=== PATIENT | male | born 1940 | race African-American/Black ===

== ENCOUNTER 2016-06-21 19:26 | Inpatient (IN) | payer MEDICARE, MEDICAID ==
[~2016-06-21] VITALS: Ht 182.9 cm; Wt 57.2 kg
[~2016-06-21 19:26] MED LIST: ADVAIR 100-501 EACH INH; AMLODIPINE BES2.5 MG ORAL; ARICEPT5 MG ORAL; ASCORBIC ACID500 MG ORAL; ASPIR 8181 MG ORAL; ASPIRIN81 M3 PO; ATIVAN1 MG ORAL; BENADRYL50 MG ORAL; BISACODYL10 M1 RC; BISCOLAX10 MG RC; COLACE100 MG ORAL; COMPAZINE25 MG RECTAL; CRANBERRY400 MG PO; DIAZEPAM2 MG ORAL; FAMOTIDINE20 MG ORAL; IPRATROPIU0.2 MG/1 M HHN; LACTULOSE10 GM/153 PO; LEVAQUIN500 MG ORAL; LORAZEPAM1 MG ORAL; LOVENOX10 MG SUBQ; MEDROL DOSEPAK4 MG ORAL; MIRTAZAPINE15 M1 ORAL; MULTIVITAMINS1 EAC8 ORAL; NITROGLYCERIN0.4 MG SL; NORCO 5-325 TA1 EACH ORAL; NORVASC2.5 MG ORAL; QUETIAPINE FUMA25 MG ORAL; RISPERDAL0.25 MG ORAL; RISPERDAL1 MG PO; SEROQUEL25 MG ORAL; TYLENOL650 MG/20. ORAL; VALIUM2 MG ORAL; ZINC SULFATE220 M1 ORAL
[2016-06-21] MEDS ORDERED: Solu-MEDROL 125mg Inj IVP ONE (19:45)
[2016-06-21] MEDS ORDERED: Albuterol ud Inhalation HHN ONE (19:45)
[2016-06-21] MEDS ORDERED: Morphine Sulfate 4mg/ml Inj IVP ONE (19:45)
[2016-06-21] MEDS ORDERED: Ipratropium 0.02% Inh Soln 2.5ml UD HHN ONE (19:45)
[2016-06-21 20:00] VITALS: BP 103/68
[2016-06-21 20:23] LABS: BASOPHILS % (AUTO) 1.7 % (0.0-2.0); EOSINOPHILS % (AUTO) 2.8 % (0.0-3.0); MEAN CORPUSCULAR HEMOGLOBIN 26.3 PG (27.0-31.0); MEAN CORPUSCULAR HGB CONC 30.1 G/DL (32.0-36.0); MEAN CORPUSCULAR VOLUME 87 FL (80-99); MEAN PLATELET VOLUME 5.3 FL (6.5-10.1); MONOCYTES % (AUTO) 9.8 % (1.0-10.0); NEUTROPHILS % (AUTO) 55.6 % (45.0-75.0); PLATELET COUNT 287 K/UL (150-450); RED BLOOD COUNT 3.75 M/UL (4.70-6.10); WHITE BLOOD COUNT 5.7 K/UL (4.8-10.8)
[2016-06-21 20:29] LABS: APPEARANCE,URINE CLOUDY; KETONES,URINE NEGATIVE (NEGATIVE); LEUKOCYTE ESTERASE ,URINE 3+ (NEGATIVE); NITRITE,URINE NEGATIVE (NEGATIVE); PH,URINE 9 (4.5-8.0); PROTEIN,URINE 2+ (NEGATIVE); UROBILINOGEN,URINE NORMAL MG/DL (0.0-1.0)
[2016-06-21 20:38] LABS: TROPONIN I < 0.30 ng/mL (<=0.30)
[2016-06-21 20:39] LABS: ALANINE AMINOTRANSFERASE 30 U/L (3-41); ALBUMIN/GLOBULIN RATIO 1.1 (1.0-2.7); ANION GAP 12 (5-15); ASPARTATE AMINO TRANSFERASE 18 U/L (5-40); CALCIUM 8.1 mg/dL (8.6-10.2); CARBON DIOXIDE 29 mEQ/L (20-30); CHLORIDE 100 mEQ/L (98-107); CREATININE 0.9 mg/dL (0.7-1.2); HEMOLYSIS 12; POTASSIUM 3.7 mEQ/L (3.4-4.9); SODIUM 141 mEQ/L (135-145); TOTAL PROTEIN 5.6 g/dL (6.6-8.7)
[2016-06-21 20:47] LABS: BACTERIA,URINE MODERATE /HPF; REFLEX LACTIC ACID YES OR NO YES; SQUAMOUS EPITHELIAL CELL,UR FEW /LPF (NONE/OCC); WBC,URINE 15-20 /HPF (0 - 0)
[2016-06-21 20:48] LABS: ICTOTEST NEGATIVE; TRIPLE PHOSPHATE CRYSTAL,UR MANY /LPF
[2016-06-21 20:49] LABS: CKMB 3.8 ng/mL (< 6.7)
[2016-06-21 21:00] VITALS: BP 117/71
[2016-06-21] MEDS ORDERED: HYDROmorphone 1 MG, DiphenhydrAMINE 25 MG in NS 50 ML IVPB ONE (21:15)
[2016-06-21] MEDS ORDERED: HYDROmorphone 1mg/ml Carpuject IVP ONE ×2 (21:15→22:00)
[2016-06-21 22:00] VITALS: BP 104/79
[2016-06-21] MEDS ORDERED: LORazepam Inj 2mg/ml 1ml IV PRN (22:45)
[2016-06-21] MEDS ORDERED: Morphine Sulfate 2mg/ml Inj IVP PRN (22:45)
[2016-06-21] MEDS ORDERED: Miralax 17gm pkt ORAL PRN (22:45)
[2016-06-21] MEDS ORDERED: Zolpidem 5mg tab ORAL PRN (22:45)
[2016-06-21] MEDS ORDERED: Morphine Sulfate 4mg/ml Inj IVP PRN (22:45)
[2016-06-21] MEDS ORDERED: Mylanta II UD 30ml ORAL PRN (22:45)
[2016-06-21] MEDS ORDERED: HYDROmorphone 2 MG in NS 50 ML IVPB PRN (22:45)
[2016-06-21 23:00] VITALS: BP 118/74
[2016-06-22] VITALS (7 sets, daily range): BP systolic 113–143; BP diastolic 64–78
[2016-06-22] MEDS ORDERED: Zosyn 3.375gm inj ONE (00:42)
--- NOTE | 2016-06-22 02:14 | Emergency Room Report ---
History of Present Illness General Chief Complaint: General Complaint Source: Patient, Family Member, Medical Record Present Illness HPI 76-year-old male presents to ED for evaluation. Per EMS patient was complaining of chest pain at that convalescent home today. Patient was given NTG x3, aspirin. On arrival patient was crying in pain. Patient has history of dementia. 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 Pain is "all over". No aggravating or relieving factors. Unclear whether patient has chest pain at this time. No reported fevers chills. No other associated symptom Allergies: Coded Allergies: HALOPERIDOL (Unverified Allergy, Unknown, 04/19/15) Patient History Past Medical History: HTN, CHF, COPD, dementia Past Surgical History: none Pertinent Family History: none Social History: Denies: alcohol use, drug use, smoking Immunizations: UTD Reviewed Nursing Documentation: PMH: Agreed, PSxH: Agreed Nursing Documentation-PMH Hx Cardiac Problems: Yes - CHF Hx Hypertension: Yes Hx COPD: Yes Hx Cancer: No Hx Gastrointestinal Problems: No Hx Neurological Problems: Yes - DEMENTIA, ALZEIHMERS Hx Dementia: Yes Hx Memory Loss: Yes Review of Systems All Other Systems: negative except mentioned in HPI Physical Exam Vital Signs Date Time Temp Pulse Resp B/P Pulse Ox O2 Delivery O2 Flow Rate FiO2 06/21/16 19:25 102 15 103/68 99 Room Air 06/21/16 20:00 97.9 Sp02 EP Interpretation: reviewed, normal General Appearance: cachetic, thin, other - dementia Head: normocephalic Eyes: bilateral eye PERRL, bilateral eye normal inspection ENT: hearing grossly normal, normal pharynx, no angioedema, normal voice Neck: full range of motion, supple/symm/no masses Respiratory: decreased breath sounds, wheezing Cardiovascular #1: regular rate, rhythm, no edema Gastrointestinal: normal bowel sounds, non tender, soft, non-distended, no guarding, no rebound Rectal: deferred Genitourinary: no CVA tenderness Musculoskeletal: normal inspection Neurologic: other - dementia Psychiatric: other - dementia Skin: normal inspection Lymphatic: normal inspection Medical Decision Making Diagnostic Impression: Primary Impression: COPD (chronic obstructive pulmonary disease) Qualified Codes: J44.9 - Chronic obstructive pulmonary disease, unspecified Additional Impressions: UTI (urinary tract infection) Qualified Codes: N39.0 - Urinary tract infection, site not specified Chronic pain due to neoplasm ER Course Hospital Course 76-year-old male presents to ED with reported chest pain today. Decreased breath sounds. History of COPD. Pain to entire body Differential diagnoses include: Pneumonia, CHF exacerbation, pneumothorax, fluid overload Clinical course Patient placed on stretcher. On director cardiac with stable vitals. After initial history and physical, I ordered nebulizer treatments, steroids, pain medication. I ordered labs, IV fluids, EKG, chest x-ray, blood cultures, UA. Labs - no leukocytosis noted, hemoglobin/hematocrit stable, electrolytes okay, lactate okay, troponins negative UA grossly positive CXR - no infiltrates Patient requires continued pain medication. Antibiotics given. Case discussed with Dr. Dunn and he agreed to the patient to his service for further care and support I feel this is a highly complex case requiring extensive working including EKG/ Rhythm strip, Xray/CT/US, Blood/urine lab work, repeat exams while in ED, and administration of strong opiates/narcotics for pain control, admission to hospital or close patient follow up. Diagnosis - COPD exacerbation, UTI, chronic pain due to neoplasm Patient admitted to telemetry in serious condition Labs Test 06/21/16 20:00 06/21/16 21:40 White Blood Count 5.7 K/UL (4.8-10.8) Red Blood Count 3.75 M/UL (4.70-6.10) Hemoglobin 9.9 G/DL (14.2-18.0) Hematocrit 32.7 % (42.0-52.0) Mean Corpuscular Volume 87 FL (80-99) Mean Corpuscular Hemoglobin 26.3 PG (27.0-31.0) Mean Corpuscular Hemoglobin Concent 30.1 G/DL (32.0-36.0) Red Cell Distribution Width 21.0 % (11.6-14.8) Platelet Count 287 K/UL (150-450) Mean Platelet Volume 5.3 FL (6.5-10.1) Neutrophils (%) (Auto) 55.6 % (45.0-75.0) Lymphocytes (%) (Auto) 30.0 % (20.0-45.0) Monocytes (%) (Auto) 9.8 % (1.0-10.0) Eosinophils (%) (Auto) 2.8 % (0.0-3.0) Basophils (%) (Auto) 1.7 % (0.0-2.0) Urine Color [place] Urine Appearance Cloudy Urine pH 9 (4.5-8.0) Urine Specific [place] 1.010 (1.005-1.035) Urine Protein 2+ (NEGATIVE) Urine Glucose (UA) Negative (NEGATIVE) Urine Ketones Negative (NEGATIVE) Urine Occult Blood 4+ (NEGATIVE) Urine Nitrite Negative (NEGATIVE) Urine Bilirubin Negative (NEGATIVE) Urine Ictotest Negative Urine Urobilinogen Normal MG/DL (0.0-1.0) Urine Leukocyte Esterase 3+ (NEGATIVE) Urine RBC 10-15 /HPF (0 - 0) Urine WBC 15-20 /HPF (0 - 0) Urine Squamous Epithelial Cells Few /LPF (NONE/OCC) Urine Triple Phosphate Crystals Many /LPF (NONE) Urine Bacteria Moderate /HPF (NONE) Sodium Level 141 mEQ/L (135-145) Potassium Level 3.7 mEQ/L (3.4-4.9) Chloride Level 100 mEQ/L (98-107) Carbon Dioxide Level 29 mEQ/L (20-30) Anion Gap 12 (5-15) Blood Urea Nitrogen 12 mg/dL (7-23) Creatinine 0.9 mg/dL (0.7-1.2) Estimat Glomerular Filtration Rate mL/min (>60) Glucose Level 127 mg/dL (74-106) Lactic Acid Level 2.10 mmol/L (0.66-2.22) 1.10 mmol/L (0.66-2.22) Calcium Level 8.1 mg/dL (8.6-10.2) Total Bilirubin 0.3 mg/dL (0.0-1.2) Aspartate Amino Transf (AST/SGOT) 18 U/L (5-40) Alanine Aminotransferase (ALT/SGPT) 30 U/L (3-41) Alkaline Phosphatase 2076 U/L (40-129) Total Creatine Kinase 79 U/L (38-174) Creatine Kinase MB 3.8 ng/mL (< 6.7) Creatine Kinase MB Relative Index 4.8 Troponin I < 0.30 ng/mL (<=0.30) Pro-B-Type Natriuretic Peptide 405 pg/mL (0-450) Total Protein 5.6 g/dL (6.6-8.7) Albumin 3.0 g/dL (3.5-5.2) Globulin 2.6 g/dL Albumin/Globulin Ratio 1.1 (1.0-2.7) EKG Diagnostic Results Rate: normal Rhythm: NSR ST Segments: other - RBBB ASA given to the pt in ED: No Rhythm Strip Diag. Results EP Interpretation: yes Rhythm: NSR, no PVC's, no ectopy Chest X-Ray Diagnostic Results EP Interpretation: Yes Findings: no consolidation, no effusion, no pneumothorax, no acute cardiopulmonary disease Number of Views: 1 Last Vital Signs Date Time Temp Pulse Resp B/P Pulse Ox O2 Delivery O2 Flow Rate FiO2 06/22/16 01:55 97.9 99 18 113/64 93 Room Air Status: improved Disposition: ADMITTED INPATIENT Condition: Serious Referrals: NON PHYSICIAN (PCP) FABIOLA SHAW M.D. Jun 22, 2016 02:14
[2016-06-22] MEDS ORDERED: HYDROmorphone 2 MG in NS 50 ML IVPB PRN (02:15)
[2016-06-22] MEDS: Heparin 5000 units/ml inj SUBQ SCH ×2 (10:08→21:02)
--- NOTE | 2016-06-22 15:34 | Wound Care Consultation ---
Wound Assessment Wound Assessment #1: Wound Present on Admission: Yes New Wound: No Status Change of Wound: No Wound Location Body Site Modif: left Wound Location Body Site: heel Wound Type: pressure ulcer David Test: Does not David Pressure Ulcer Stage: deep tissue injury Wound Thickness: Full Thickness Wound Length: 6.0 Wound Width: 5.0 Wound Depth: utd Percent of Wound Black/Brown: 100 Wound Drainage Amount: None Wound Drainage Odor: None/Absent Tissue Surrounding Wound: Erythemic Wound General Appearance: Asymptomatic Wound Assessment #2: Wound Number: #2 Wound Present on Admission: Yes New Wound: No Status Change of Wound: No Wound Location Body Site Modif: right Wound Location Body Site: knee Wound Type: pressure ulcer David Test: Does not David Pressure Ulcer Stage: deep tissue injury Wound Thickness: Full Thickness Wound Length: 4.0 Wound Width: 6.0 Wound Depth: utd Percent of Wound Purple/Maroon: 100 Wound Drainage Amount: None Wound Drainage Odor: None/Absent Tissue Surrounding Wound: Erythemic Wound General Appearance: Reddened Wound Assessment #3: Wound Number: #3 Wound Present on Admission: Yes New Wound: No Status Change of Wound: No Wound Location Body Site Modif: mid Wound Location Body Site: sacral Wound Type: pressure ulcer David Test: Does not David Pressure Ulcer Stage: IV/unstageable Wound Thickness: Full Thickness Wound Length: 5.5 Wound Width: 7.5 Wound Depth: utd Percent of Wound [place]/Red: 80 Percent of Wound Bed Yellow/Wh: 20 Wound Drainage Description: Serosanguineous Wound Drainage Amount: Moderate Wound Drainage Odor: None/Absent Tissue Surrounding Wound: Macerated Wound General Appearance: Reddened, Draining Wound Comment #1 Sacral stage IV/unstageable pressure ulcer #2 Left heel blood filled intact blister DTI pressure ulcer #3 Right heel DTI pressure ulcer purple in color Recommendation -Turn and reposition -Keep clean and dry -Optimize nutrition -Local wound as ordered -Offload both heels -Low air loss overlay mattress -Assess and f/u with accordingly for any changes JAD GRUBBS RN Jun 22, 2016 15:34
--- NOTE | 2016-06-22 16:43 | Diagnostic Imaging Report ---
Indication: Chest Pain Comparison: 03/24/16 A single view chest radiograph was obtained. Findings: Bones are heterogeneous and increased in density suspicious for metastatic neoplasm. Cardiomegaly is present. The lungs appear clear. Impression: No acute cardiopulmonary disease appreciated. There are abnormal bones. Suspect metastatic neoplasm
[2016-06-23] VITALS: BP 131/78
[2016-06-23 04:28] VITALS: BP 115/76
[2016-06-23 07:57] VITALS: BP 147/81
[2016-06-23] MEDS: Heparin 5000 units/ml inj SUBQ SCH ×2 (08:36→21:52)
--- NOTE | 2016-06-23 08:54 | Cardiology Progress Note ---
Assessment/Plan Assessment/Plan full note to be dicateed sinus ariadne prostate cancer htn hyperlipidemia anemia uti proteus confusion schizophrenia per old records repeat ekg and trop dc telel soon will follow thank you Objective Last 24 Hour Vital Signs Date Time Temp Pulse Resp B/P Pulse Ox O2 Delivery O2 Flow Rate FiO2 06/23/16 08:48 57 147/81 06/23/16 07:57 97.3 57 20 147/81 98 Nasal Cannula 06/23/16 04:28 97.2 58 20 115/76 97 Nasal Cannula 2.0 06/23/16 04:00 47 06/23/16 00:00 97.0 65 20 131/78 98 06/23/16 00:00 64 06/22/16 20:00 49 06/22/16 20:00 97.0 65 22 124/78 98 Nasal Cannula 2.0 06/22/16 16:00 97.3 49 20 143/72 99 Nasal Cannula 2.0 06/22/16 16:00 46 06/22/16 12:35 56 16 06/22/16 11:40 96.5 45 20 141/78 97 Nasal Cannula 2.0 06/22/16 09:00 49 137/76 Intake and Output 06/22/16 06/23/16 19:00 07:00 Intake Total 133 ml 407 ml Output Total 150 ml 600 ml Balance -17 ml -193 ml Intake Oral 240 ml IV Total 133 ml 167 ml Output Urine Total 150 ml 600 ml Microbiology Date/Time Source Procedure Growth Status 06/21/16 19:55 Blood Blood Culture - Preliminary NO GROWTH AFTER 24 HOURS Resulted 06/21/16 19:55 Blood Blood Culture - Preliminary NO GROWTH AFTER 24 HOURS Resulted 06/21/16 20:00 Urine,Clean Catch Urine Culture - Preliminary Proteus Mirabilis Resulted YOLANDE KUHN Jun 23, 2016 08:54
[2016-06-23 11:26] VITALS: BP 127/70
--- NOTE | 2016-06-23 13:36 | History and Physical ---
History of Present Illness General Date patient seen: Jun 22, 2016 Reason for Hospitalization: General Complaint Present Illness HPI 76-year-old male with endstage Alzheimers Dementia, Parkinson, prostate Cancer psychosis, bed bound, residential resident presents to ED for evaluation of chest pain at that convalescent home the day of admission. Patient was given NTG x3, aspirin. On arrival to ER patient was crying in pain. 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 Pain is "all over". Pt was also bradycardic therefore he was admitted to telemetry for further evaluation. Patient is awake but can't give any information. Allergies: Coded Allergies: HALOPERIDOL (Unverified Allergy, Unknown, 04/19/15) Medication History Scheduled Amlodipine Besylate* (Amlodipine Besylate*), 2.5 MG ORAL DAILY, (Reported) Ascorbic Acid* (Ascorbic Acid*), 500 MG ORAL DAILY, (Reported) Aspirin* (Aspir 81*), 81 MG ORAL DAILY, (Reported) Docusate Sodium* (Colace*), 100 MG ORAL DAILY, (Reported) Donepezil Hcl* (Aricept*), 5 MG ORAL QHS Famotidine (Famotidine), 20 MG ORAL TWICE A DAY, (Reported) Fluticasone/Salmeterol (Advair 100-50 Diskus), 1 PUFF INH EVERY 12 HOURS, ( Reported) Lactulose (Lactulose), 10 GM PO TID, (Reported) Levofloxacin* (Levaquin*), 500 MG ORAL DAILY Methylprednisolone (Methylprednisolone), 4 MG ORAL .as directed Mirtazapine (Mirtazapine), 7.5 MG ORAL BEDTIME, (Reported) Multivitamin With Minerals (Multivitamins With Minerals*), 1 TAB ORAL DAILY, ( Reported) Quetiapine Fumarate* (Seroquel*), 50 MG ORAL Q12HR Quetiapine Fumarate* (Seroquel*), 25 MG ORAL BID, (Reported) Risperidone* (Risperdal*), 1 MG PO TWICE A DAY, (Reported) Risperidone* (Risperdal*), 1 MG PO BID, (Reported) Zinc Sulfate (Zinc Sulfate*), 220 MG ORAL DAILY, (Reported) Scheduled PRN Acetaminophen (Acetaminophen), 650 MG ORAL Q8H PRN for Prn Headache/Temp > 101, (Reported) Bisacodyl (Biscolax), 10 MG RC Q6HR PRN for Constipation, (Reported) Hydrocodone Bit/Acetaminophen 5-325* ([place] 5-325*), 1 TAB ORAL Q6H PRN for For Pain, (Reported) Ipratropium [place] 0.5MG/2.5ML (Ipratropium [place] 0.5MG/2.5ML), 0.5 MG HHN Q6H PRN for Shortness of Breath, (Reported) Lorazepam* (Lorazepam*), 1 MG ORAL Q4HR PRN for For Anxiety, (Reported) Prochlorperazine (Prochlorperazine), 25 MG RECTAL Q6HR PRN for Nausea & Vomiting , (Reported) Quetiapine Fumarate* (Seroquel*), 25 MG ORAL EVERY 4 HOURS PRN for for agitation Miscellaneous Medications Cranberry (Cranberry), 450 MG PO, (Reported) Nitroglycerin (Nitroglycerin), 0.4 MG SL, (Reported) Discontinued Medications Diazepam* (Valium*), 2 MG ORAL TID PRN for Agitation, (Reported) Discontinued Reason: Therapy completed Diazepam* (Diazepam*), 2 MG ORAL Q8H PRN for For Anxiety Discontinued Reason: Therapy completed Diphenhydramine HCl (Diphenhydramine HCl), 50 MG ORAL Q6H PRN for Itching, ( Reported) Discontinued Reason: Therapy completed Enoxaparin* (Lovenox*), 30 MG SUBQ DAILY, (Reported) Discontinued Reason: Therapy completed Patient History Healthcare decision maker Resuscitation status Full Code Advanced Directive on File No Past Medical/Surgical History Past Medical/Surgical History: (1) Schizophrenia (2) Cerebral vascular disease (3) Dementia (4) Protein-calorie malnutrition, severe (5) COPD (chronic obstructive pulmonary disease) Review of Systems All Other Systems: negative except mentioned in HPI Physical Exam General Appearance: WD/WN Lines, tubes and drains: peripheral HEENT: normocephalic, atraumatic Neck: non-tender, normal alignment Respiratory/Chest: chest wall non-tender, lungs clear Cardiovascular/Chest: normal peripheral pulses, normal rate Abdomen: normal bowel sounds Genitourinary/Rectal: normal genital exam Extremities: normal range of motion Skin Exam: normal pigmentation 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 normal Last 24 Hour Vital Signs Date Time Temp Pulse Resp B/P Pulse Ox O2 Delivery O2 Flow Rate FiO2 06/23/16 12:00 56 06/23/16 11:26 97.1 61 20 127/70 99 Nasal Cannula 2.0 06/23/16 08:48 57 147/81 06/23/16 08:00 73 06/23/16 07:57 97.3 57 20 147/81 98 Nasal Cannula 06/23/16 04:28 97.2 58 20 115/76 97 Nasal Cannula 2.0 06/23/16 04:00 47 06/23/16 00:00 97.0 65 20 131/78 98 06/23/16 00:00 64 06/22/16 20:00 49 06/22/16 20:00 97.0 65 22 124/78 98 Nasal Cannula 2.0 06/22/16 16:00 97.3 49 20 143/72 99 Nasal Cannula 2.0 06/22/16 16:00 46 Intake and Output 06/22/16 06/23/16 19:00 07:00 Intake Total 133 ml 407 ml Output Total 150 ml 600 ml Balance -17 ml -193 ml Intake Oral 240 ml IV Total 133 ml 167 ml Output Urine Total 150 ml 600 ml Height (Feet): 6 Height (Inches): 7.00 Weight (Pounds): 126 Medications Current Medications Medications (Trade) Dose Ordered Sig/Jacey Route PRN Reason Start Time Stop Time Status Last Admin Dose Admin Acetaminophen (Tylenol) 650 mg Q4H PRN ORAL fever 06/21/16 22:45 07/21/16 22:44 Al Hydroxide/Mg Hydroxide (Mylanta II) 30 ml Q6H PRN ORAL dyspepsia 06/21/16 22:45 07/21/16 22:44 Amlodipine Besylate (Norvasc) 2.5 mg DAILY ORAL 06/22/16 09:00 07/22/16 08:59 Dextrose STAT PRN IV Hypoglycemia 06/21/16 22:45 07/21/16 22:44 Diazepam (Valium) 2 mg Q8H PRN ORAL For Anxiety 06/21/16 22:45 06/28/16 22:44 Heparin Sodium (Porcine) (Heparin 5000 units/ml) 5,000 units EVERY 12 HOURS SUBQ 06/22/16 09:00 07/22/16 08:59 06/23/16 08:36 Hydromorphone HCl/ Sodium Chloride (Dilaudid/Sodium Chloride 50ml bag) 51 ml @ 200 mls/hr Q3H PRN IVPB pain 7-10 06/22/16 02:15 06/29/16 02:14 Lorazepam (Ativan 2mg/ml 1ml) 0.5 mg Q4H PRN IV For Anxiety 06/21/16 22:45 06/28/16 22:44 06/22/16 03:45 Morphine Sulfate (Morphine Sulfate) 2 mg Q4H PRN IVP For Pain 4-6 06/21/16 22:45 06/28/16 22:44 Ondansetron HCl (Zofran) 4 mg Q6H PRN IVP Nausea & Vomiting 06/21/16 22:45 07/21/16 22:44 Piperacillin Sod/ Tazobactam Sod 3.375 gm/Sodium Chloride 100 ml @ 25 mls/hr Q8H IVPB 06/22/16 00:30 06/29/16 00:29 06/23/16 08:35 Polyethylene Glycol (Miralax) 17 gm HSPRN PRN ORAL Constipation 06/21/16 22:45 07/21/16 22:44 Prochlorperazine (Compazine) 25 mg Q6H PRN RECTAL Nausea & Vomiting 06/21/16 22:45 07/21/16 22:44 Quetiapine Fumarate (SEROquel) 25 mg BID ORAL 06/22/16 09:00 07/22/16 08:59 06/23/16 08:35 Risperidone (RisperDAL) 1 mg BID ORAL 06/22/16 09:00 07/22/16 08:59 06/23/16 08:35 Zolpidem Tartrate (Ambien) 5 mg HSPRN PRN ORAL Insomnia 06/21/16 22:45 07/21/16 22:44 Assessment/Plan Problem List: (1) Acute encephalopathy ICD Codes: G93.40 - Encephalopathy, unspecified SNOMED: 2128884 (2) CAD (coronary artery disease) ICD Codes: I25.10 - Atherosclerotic heart disease of [place] coronary artery without angina pectoris SNOMED: 82197897 (3) Protein-calorie malnutrition, severe ICD Codes: E43 - Unspecified severe protein-calorie malnutrition SNOMED: 379301841 (4) Intractable back pain ICD Codes: M54.9 - Dorsalgia, unspecified SNOMED: 529197436 (5) Prostate cancer metastatic to bone ICD Codes: C61 - Malignant neoplasm of prostate; C79.51 - Secondary malignant neoplasm of bone SNOMED: 97118062, 52887774 (6) Cerebral vascular disease ICD Codes: I67.9 - Cerebrovascular disease, unspecified SNOMED: 69325031 (7) Schizophrenia ICD Codes: F20.9 - Schizophrenia, unspecified SNOMED: 74550334 (8) COPD (chronic obstructive pulmonary disease) ICD Codes: J44.9 - Chronic obstructive pulmonary disease, unspecified SNOMED: 00655746 Qualifiers: Qualified Codes: J44.9 - Chronic obstructive pulmonary disease, unspecified Assessment/Plan cardiac evaluation pain control swallow evaluation echo psych evaluation check electrolytes CAIT DAMIAN Jun 23, 2016 13:36
[2016-06-23] MEDS: Morphine Sulfate 2mg/ml Inj IVP PRN (14:08)
[2016-06-23 16:00] VITALS: BP 125/68
[2016-06-23 16:01] LABS: BASOPHILS % (AUTO) 1.5 % (0.0-2.0); EOSINOPHILS % (AUTO) 1.5 % (0.0-3.0); LYMPHOCYTES % (AUTO) 21.8 % (20.0-45.0); MEAN CORPUSCULAR HEMOGLOBIN 26.5 PG (27.0-31.0); MEAN CORPUSCULAR HGB CONC 31.1 G/DL (32.0-36.0); MEAN CORPUSCULAR VOLUME 85 FL (80-99); MEAN PLATELET VOLUME 5.3 FL (6.5-10.1); NEUTROPHILS % (AUTO) 67.2 % (45.0-75.0); PLATELET COUNT 260 K/UL (150-450); RED BLOOD COUNT 3.57 M/UL (4.70-6.10); RED CELL DISTRIBUTION WIDTH 21.3 % (11.6-14.8); WHITE BLOOD COUNT 5.2 K/UL (4.8-10.8)
[2016-06-23 16:17] LABS: INR 1.4 (0.9-1.1); PROTHROMBIN TIME 14.4 SEC (9.30-11.50)
[2016-06-23 16:44] LABS: PSA TOTAL 300.8 ng/mL (< 4.5)
[2016-06-23] MEDS ORDERED: NS 110ml ONE (17:00)
[2016-06-23 17:17] LABS: ERYTHROCYTE SEDIMENTATION RATE 20 MM/HR (0-20)
--- NOTE | 2016-06-23 17:49 | Cardiology Report ---
APPROVED REPORT EKG Measurement Heart [id number] CT 110P73 [id number] Sinus rhythm with short CT with premature atrial complexes Right bundle branch block Abnormal ECG
[2016-06-23 18:31] LABS: ANISOCYTOSIS 1+; BAND NEUTROPHILS % (MANUAL) 2 % (0-8); BASOPHILS % (MANUAL) 1 % (0-2); EOSINOPHILS % (MANUAL) 1 % (0-3); LYMPHOCYTES % (MANUAL) 25 % (20-45); NEUTROPHILS % (MANUAL) 66 % (45-75); TOTAL CELLS COUNTED 100
[2016-06-23 18:32] LABS: HYPOCHROMASIA 1+; POLYCHROMASIA 1+
[2016-06-23 18:33] LABS: NUCLEATED RED BLOOD CELLS 1 /100 WBC; PLATELET ESTIMATE ADEQUATE; PLATELET MORPHOLOGY NORMAL
[2016-06-23 19:02] LABS: PATH BLOOD SMEAR/OMC SENT TO PATHOLOGIST; RETICULOCYTE COUNT 1.4 % (0.0-2.0)
[2016-06-23 20:00] VITALS: BP_SYST 111; BP_SYST 125; BP_DIAS 65; BP_DIAS 68
[2016-06-24] VITALS: BP 128/76
[2016-06-24 04:00] VITALS: BP 141/73
[2016-06-24 07:41] LABS: BASOPHILS % (AUTO) 1.2 % (0.0-2.0); EOSINOPHILS % (AUTO) 4.8 % (0.0-3.0); LYMPHOCYTES % (AUTO) 25.3 % (20.0-45.0); MEAN CORPUSCULAR HEMOGLOBIN 26.4 PG (27.0-31.0); MEAN CORPUSCULAR HGB CONC 29.9 G/DL (32.0-36.0); MEAN CORPUSCULAR VOLUME 88 FL (80-99); MEAN PLATELET VOLUME 5.2 FL (6.5-10.1); MONOCYTES % (AUTO) 9.7 % (1.0-10.0); PLATELET COUNT 244 K/UL (150-450); RED BLOOD COUNT 3.18 M/UL (4.70-6.10); RED CELL DISTRIBUTION WIDTH 21.1 % (11.6-14.8); WHITE BLOOD COUNT 4.7 K/UL (4.8-10.8)
[2016-06-24 08:03] VITALS: BP 137/82
[2016-06-24] MEDS: Heparin 5000 units/ml inj SUBQ SCH (09:00)
[2016-06-24 11:31] VITALS: BP 116/72
--- NOTE | 2016-06-24 15:41 | Pulmonology Progress Note ---
Assessment/Plan Problems: (1) Acute encephalopathy (2) CAD (coronary artery disease) (3) Protein-calorie malnutrition, severe (4) Intractable back pain (5) Prostate cancer metastatic to bone (6) Cerebral vascular disease (7) Schizophrenia (8) COPD (chronic obstructive pulmonary disease) Assessment/Plan Assessment/Plan Monitor mentation cardiac evaluation pain control swallow evaluation echo psych evaluation check electrolytes Subjective Allergies: Coded Allergies: HALOPERIDOL (Unverified Allergy, Unknown, 04/19/15) Objective Last 24 Hour Vital Signs Date Time Temp Pulse Resp B/P Pulse Ox O2 Delivery O2 Flow Rate FiO2 06/24/16 11:43 59 06/24/16 11:31 96.1 69 20 116/72 92 Nasal Cannula 2.0 06/24/16 10:23 54 137/82 06/24/16 08:03 59 06/24/16 08:03 96.3 54 20 137/82 95 Nasal Cannula 2.0 06/24/16 04:33 62 06/24/16 04:00 97.7 70 18 141/73 94 Nasal Cannula 2.0 06/24/16 00:00 97.5 72 20 128/76 95 Room Air 06/23/16 23:49 73 06/23/16 20:00 97.0 76 21 111/65 95 Nasal Cannula 2.0 06/23/16 19:09 78 06/23/16 19:09 78 06/23/16 16:00 61 06/23/16 16:00 97.1 60 20 125/68 95 Nasal Cannula 2.0 Intake and Output 06/23/16 06/24/16 19:00 07:00 Intake Total 580 ml 450 ml Output Total 300 ml 600 ml Balance 280 ml -150 ml Intake Oral 480 ml 200 ml IV Total 100 ml Other 250 ml Output Urine Total 300 ml 600 ml General Appearance: no acute distress HEENT: normocephalic, atraumatic, PERRL Respiratory/Chest: chest wall non-tender, lungs clear, decreased breath sounds , accessory muscle use Cardiovascular: normal peripheral pulses, normal rate, regular rhythm, no JVD Abdomen: normal bowel sounds, no organomegaly, non distended Genitourinary: normal external genitalia Extremities: no cyanosis Skin: rash, lesions Neurologic/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, responsive, disoriented, depressed affect Microbiology Date/Time Source Procedure Growth Status 06/21/16 19:55 Blood Blood Culture - Preliminary NO GROWTH AFTER 48 HOURS Resulted 06/21/16 19:55 Blood Blood Culture - Preliminary NO GROWTH AFTER 48 HOURS Resulted 06/21/16 20:00 Urine,Clean Catch Urine Culture - Final Proteus Mirabilis Esbl Complete 06/22/16 09:25 Sacral Wound Gram Stain - Final Resulted 06/22/16 09:25 Wound Culture - Preliminary Staphylococcus Aureus - Mrsa Resulted Laboratory Tests 06/24/16 06:35: White Blood Count 4.7L, Red Blood Count 3.18L, Hemoglobin 8.4L, Hematocrit 28.1L , Mean Corpuscular Volume 88, Mean Corpuscular Hemoglobin 26.4L, Mean Corpuscular Hemoglobin Concent 29.9L, Red Cell Distribution Width 21.1H, Platelet Count 244, Mean Platelet Volume 5.2L, Neutrophils (%) (Auto) 59.0, Lymphocytes (%) (Auto) 25.3, Monocytes (%) (Auto) 9.7, Eosinophils (%) (Auto) 4.8H, Basophils (%) (Auto) 1.2 Current Medications Medications (Trade) Dose Ordered Sig/Jacey Route PRN Reason Start Time Stop Time Status Last Admin Dose Admin Acetaminophen (Tylenol) 650 mg Q4H PRN ORAL fever 06/21/16 22:45 07/21/16 22:44 Al Hydroxide/Mg Hydroxide (Mylanta II) 30 ml Q6H PRN ORAL dyspepsia 06/21/16 22:45 07/21/16 22:44 Amlodipine Besylate (Norvasc) 2.5 mg DAILY ORAL 06/22/16 09:00 07/22/16 08:59 06/24/16 10:23 Dextrose STAT PRN IV Hypoglycemia 06/21/16 22:45 07/21/16 22:44 Diazepam (Valium) 2 mg Q8H PRN ORAL For Anxiety 06/21/16 22:45 06/28/16 22:44 Heparin Sodium (Porcine) (Heparin 5000 units/ml) 5,000 units EVERY 12 HOURS SUBQ 06/22/16 09:00 07/22/16 08:59 06/23/16 21:52 Lorazepam (Ativan 2mg/ml 1ml) 0.5 mg Q4H PRN IV For Anxiety 06/21/16 22:45 06/28/16 22:44 1/9/17 03:45 Methadone HCl (Methadone HCl) 5 mg EVERY 12 HOURS ORAL 06/23/16 21:00 06/30/16 20:59 06/24/16 10:23 Morphine Sulfate (Morphine Sulfate) 4 mg Q4H PRN IVP For Pain 4-6 06/23/16 14:45 06/30/16 14:44 06/23/16 14:08 Ondansetron HCl (Zofran) 4 mg Q6H PRN IVP Nausea & Vomiting 06/21/16 22:45 07/21/16 22:44 Piperacillin Sod/ Tazobactam Sod/ Sodium Chloride (Zosyn/Sodium Chloride 100ml bag) 100 ml @ 25 mls/hr Q8H IVPB 06/22/16 00:30 06/29/16 00:29 06/24/16 10:22 Polyethylene Glycol (Miralax) 17 gm HSPRN PRN ORAL Constipation 06/21/16 22:45 07/21/16 22:44 Prochlorperazine (Compazine) 25 mg Q6H PRN RECTAL Nausea & Vomiting 06/21/16 22:45 07/21/16 22:44 Quetiapine Fumarate (SEROquel) 25 mg BID ORAL 06/22/16 09:00 07/22/16 08:59 06/24/16 10:23 Risperidone (RisperDAL) 1 mg BID ORAL 06/22/16 09:00 07/22/16 08:59 06/24/16 10:22 Zolpidem Tartrate (Ambien) 5 mg HSPRN PRN ORAL Insomnia 06/21/16 22:45 07/21/16 22:44 CAIT DAMIAN Jun 24, 2016 15:41
[2016-06-24] MEDS ORDERED: METHADONE10 MG/1 M1 PO (15:43)
[2016-06-24 15:52] VITALS: BP 106/61
[2016-06-24] MEDS: Morphine Sulfate 2mg/ml Inj IVP PRN (16:01)
[2016-06-25 09:39] LABS: FOLIC ACID 11.6 ng/mL (3.1-17.5)
--- NOTE | 2016-06-25 16:45 | Discharge Summary ---
Discharge Summary Hospital Course Date of Admission Jun 21, 2016 at 21:33 Date of Discharge Jun 24, 2016 at 19:45 Admitting Diagnosis SOB/CP HPI Andrew Mcfarland is a 76 year old male who was admitted on Jun 21, 2016 at 21:33 for Chest Pain,Shortness Of Breath Hospital Course [id number] Discharge Discharge Disposition Patient was discharged to SNF/Subacute Facility(03) Discharge Diagnoses: Diamond Lowery NP Jun 25, 2016 16:45
--- NOTE | 2016-06-25 20:33 | Cardiology Report ---
APPROVED REPORT EKG Measurement Heart [id number] [place] 118P76 [id number] Normal sinus rhythm Right bundle branch block Abnormal ECG
--- NOTE | 2016-06-26 00:47 | Discharge Summary 2 SIG ---
DATE OF ADMISSION: 06/21/2016 DATE OF DISCHARGE: 06/24/2016 CONSULTANTS: Jakub Mireles M.D. BRIEF HOSPITAL COURSE: The patient is a 76-year-old male with end-stage Alzheimer's dementia, Parkinson's, prostate cancer, psychosis, bed-bound and jail resident, presented to ED for evaluation of chest [facility] at [facility], he was given nitroglycerin x3 and aspirin. On arrival to ED, he was in pain, conservator at bedside. The patient had recent diagnosis of cancer that metastasized to bone. The patient is always in pain and pain is all over. He was found to be bradycardic and was admitted to telemetry. Dr. Mireles was consulted. Troponin was negative. Urine culture with growth of Proteus mirabilis ESBL. He came in with sacral stage IV/unstageable pressure ulcer and bilateral heel DTI pressure ulcer. Wound care was provided. He was given IV Zosyn. The patient was discharged to [facility]. FINAL DIAGNOSES: 1. Acute on chronic metabolic encephalopathy. 2. Coronary artery disease. 3. Severe protein-calorie malnutrition. 4. Intractable back pain. 5. Prostate cancer metastatic to bone. 6. Cerebrovascular disease. 7. Schizophrenia. 8. Chronic obstructive pulmonary disease. 9. Hyperlipidemia. 10. Urinary tract infection with Proteus. 11. Anemia. 12. Hypertension. 13. Sinus bradycardia. 14. Pressure ulcer as stated above present on admission. Murphy Morgan M.D. I have been assigned to dictate discharge summary on this account and I was not involved in the patient's management. Diamond Lowery N.P. DR: CLAUDETTE JOB#: [id number] CC: RYAN
== END 2016-06-24 19:45 | DRG 190 ==
LOC: EDBD 19:26 → EMR 20:15 → 2E 21:33 → EDBEDREQ 06-22 01:24 → EMR 06-22 02:05
DX: J44.1 Chronic obstructive pulmonary disease with (acute) exacerbation (principal); G93.40 Encephalopathy, unspecified; E43 Unspecified severe protein-calorie malnutrition; L89.150 Pressure ulcer of sacral region, unstageable; G93.41 Metabolic encephalopathy; C79.51 Secondary malignant neoplasm of bone; G20 Parkinson's disease; N39.0 Urinary tract infection, site not specified; Z68.1 Body mass index [BMI] 19.9 or less, adult; I25.10 Atherosclerotic heart disease of native coronary artery without angina pectoris; I50.9 Heart failure, unspecified; G30.9 Alzheimer's disease, unspecified; F02.80 Dementia in other diseases classified elsewhere, unspecified severity, without behavioral disturbance, psychotic disturbance, mood disturbance, and anxiety; G89.3 Neoplasm related pain (acute) (chronic); R00.1 Bradycardia, unspecified; C61 Malignant neoplasm of prostate; I10 Essential (primary) hypertension; E87.5 Hyperkalemia; D64.9 Anemia, unspecified; F20.9 Schizophrenia, unspecified; B96.4 Proteus (mirabilis) (morganii) as the cause of diseases classified elsewhere; Z66 Do not resuscitate; L89.629 Pressure ulcer of left heel, unspecified stage; L89.619 Pressure ulcer of right heel, unspecified stage; Z53.29 Procedure and treatment not carried out because of patient's decision for other reasons
CPT/HCPCS: 36415; 71010; 80053; 81003; 82378; 82550; 82553; 82607; 82746; 83540; 83550; 83605; 83615; 83880; 84153; 84484; 85007; 85025; 85044; 85060; 85610; 85651; 85730; 86850; 86900; 86901; 86920; 87040; 87070; 87086; 87181; 87205; 93005; 94640; 94664